=== PATIENT | female | born 2005 | race Caucasian/White ===

== ENCOUNTER 2024-02-06 11:24 | Emergency (ER) | payer BC ==
[2024-02-06] MEDS ORDERED: Ondansetron ODT 4 MG TAB ONE (12:46)
[2024-02-06] MEDS ORDERED: Ketorolac Tromethamine 30 MG (1 mL) VIAL ONE (12:46)
== END 2024-02-06 13:53 | disposition home or self-care (01) ==
LOC: CSHERS 11:24
DX: B34.9 Viral infection, unspecified (principal)
CPT/HCPCS: 96372; 99284